=== PATIENT | female | born 1995 | race Caucasian/White ===

== ENCOUNTER 2017-08-13 10:38 | Emergency (ER) | payer BC, OTHER, MEDICAID ==
[~2017-08-13] VITALS: Ht 165.1 cm; Wt 44.0 kg
[2017-08-13] MEDS ORDERED: ZOLOFT25 MG PO (10:48)
[2017-08-13] MEDS ORDERED: TOPROL XL25 MG PO (10:48)
[2017-08-13 11:03] LABS: ABSOLUTE EOSINOPHILS 0.1 thou/uL (0.0-0.7); ABSOLUTE LYMPHOCYTES 2.3 thou/uL (0.8-5.3); ABSOLUTE MONOCYTES 0.4 thou/uL (0.0-1.2); ABSOLUTE NEUTROPHILS 3.9 thou/uL (1.6-8.1); BASOPHILS 0.4 %; EOSINOPHILS 0.8 %; HEMOGLOBIN 13.6 gm/dL (12.0-15.0); LYMPHOCYTES 34.9 %; MCH 28.9 pg (26.0-34.0); MCV 84.8 fL (80.0-100.0); MONOCYTES 5.5 %; MPV 9.3 fl. (7.2-11.1); NUCLEATED RBCS 0 /100WBC; PLATELET COUNT* 166 thou/uL (150-400); POLYS 58.4 %; RBC 4.72 mil/uL (4.20-5.00); RDW-CV 12.6 % (10.5-14.5); WBC 6.7 thou/uL (4.0-11.0)
[2017-08-13 11:11] LABS: CALCIUM 8.5 mg/dL (8.5-10.1); CREATININE 0.4 mg/dL (0.6-1.3)
[2017-08-13 11:16] LABS: ALBUMIN 2.8 g/dL (3.4-5.0); TOTAL BILIRUBIN 0.3 mg/dL (<0.1-1.0); TOTAL PROTEIN 6.3 g/dL (6.4-8.2)
[2017-08-13 11:17] VITALS: BP 125/83
== END 2017-08-13 11:26 | disposition short-term general hospital (02) ==
LOC: M.ERS 10:38
PROVIDERS: Family Medicine
DX: O42.913 Preterm premature rupture of membranes, unspecified as to length of time between rupture and onset of labor, third trimester (principal); Z3A.35 35 weeks gestation of pregnancy